=== PATIENT | male | born 1990 | race Hispanic/Latino ===

== ENCOUNTER 2018-04-22 21:36 | Emergency (ER) | payer OTHER | END 2018-04-22 23:32 | disposition home or self-care (01) | LOC: M ED 21:36 | DX: B86 Scabies (principal); F17.200 Nicotine dependence, unspecified, uncomplicated | CPT/HCPCS: 99283 ==

== ENCOUNTER 2018-05-04 10:02 | Emergency (ER) | payer OTHER ==
[2018-05-04] MEDS: KETOROLAC 60 MG/2 ML VIAL (J1885) IM (10:27)
[2018-05-04] MEDS: METHOCARBAMOL 500 MG TAB PO (10:30)
== END 2018-05-04 10:56 | disposition home or self-care (01) ==
LOC: M ED 10:02
DX: S29.012A Strain of muscle and tendon of back wall of thorax, initial encounter (principal); X50.9XXA Other and unspecified overexertion or strenuous movements or postures, initial encounter; Y92.89 Other specified places as the place of occurrence of the external cause; F17.210 Nicotine dependence, cigarettes, uncomplicated
CPT/HCPCS: J1885

== ENCOUNTER 2018-11-06 17:42 | Emergency (ER) | payer SELFPAY ==
[2018-11-06] MEDS: NS 1,000 ML IV (18:45)
[2018-11-06] MEDS: PANTOPRAZOLE 40MG INJ (PROTONIX) (C9113) IV (18:45)
[2018-11-06] MEDS: ONDANSETRON 4MG/2ML VIAL (J2405) IV (18:46)
[2018-11-06 18:56] LABS: BASO % 0.4 % (0.0-1.0); EOS # 0.2 10^3/uL (0.0-0.50); EOS % 3.3 % (0.0-3.0); HEMATOCRIT 47.1 % (42.0-52.0); HEMOGLOBIN 15.5 g/dl (13.5-17.5); IMMATURE GRANULOCYTE % 0.2 % (0-3.0); LYMPH # 1.1 10^3/uL (1.5-6.5); LYMPH % 22.5 % (24.0-44.0); MEAN CORPUSCULAR HGB CONC 32.9 g/dl (32.0-36.5); MONO # 0.6 10^3/uL (0.0-0.8); MONO % 13.1 % (0.0-5.0); NEUTROPHILS % 60.5 % (36.0-66.0); PLATELET COUNT, AUTOMATED 252 10^3/uL (150-450); RED BLOOD COUNT 5.54 10^6/uL (4.30-6.10); RED CELL DISTRIBUTION WIDTH 13.1 % (11.5-14.5); WHITE BLOOD COUNT 4.9 10^3/uL (4.0-10.0)
[2018-11-06 19:09] LABS: KETONE, URINE AUTO RFX NEGATIVE (NEGATIVE); LEUKOCYTE ESTERASE UR AUTO RFX NEGATIVE (NEGATIVE); MUCUS, URINE RFX SMALL (NEGATIVE); NITRITE, URINE AUTO RFX NEGATIVE (NEGATIVE); RBC, URINE AUTO RFX 1 /HPF (0-3); SQUAM EPITHELIAL CELL UR AURFX 0 /HPF (0-6); WBC, URINE AUTO RFX 1 /HPF (0-3)
[2018-11-06 19:10] LABS: ALBUMIN 3.9 GM/DL (3.2-5.2); ALBUMIN/GLOBULIN RATIO 1.26 (1.00-1.93); ALKALINE PHOSPHATASE 71 U/L (45-117); ALT/SGPT 36 U/L (12-78); ANION GAP 5 MEQ/L (8-16); AST/SGOT 19 U/L (7-37); BILIRUBIN,DIRECT 0.1 MG/DL (0.0-0.2); BILIRUBIN,TOTAL 0.4 MG/DL (0.2-1.0); BLOOD UREA NITROGEN 17 MG/DL (7-18); CALCIUM LEVEL 8.9 MG/DL (8.5-10.1); CARBON DIOXIDE LEVEL 32 MEQ/L (21-32); CHLORIDE LEVEL 103 MEQ/L (98-107); CREATININE FOR GFR 0.95 MG/DL (0.70-1.30); GLOMERULAR FILTRATION RATE > 60.0 (>60); GLUCOSE, FASTING 100 MG/DL (70-100); LIPASE 108 U/L (73-393); POTASSIUM SERUM 4.1 MEQ/L (3.5-5.1); SODIUM LEVEL 140 MEQ/L (136-145)
[2018-11-06 21:14] LABS: CHLAMYDIA DNA AMPLIFICATION NEGATIVE (NEGATIVE); GC DNA AMPLIFICATION NEGATIVE (NEGATIVE)
== END 2018-11-06 20:19 | disposition home or self-care (01) ==
LOC: M ED 17:42
DX: K29.70 Gastritis, unspecified, without bleeding (principal); R11.2 Nausea with vomiting, unspecified; Z72.0 Tobacco use
CPT/HCPCS: C9113

== ENCOUNTER 2018-11-08 16:32 | Emergency (ER) | payer SELFPAY ==
[2018-11-08] MEDS: ONDANSETRON 4MG/2ML VIAL (J2405) IV (17:37)
[2018-11-08] MEDS: NS 1,000 ML IV (17:37)
[2018-11-08] MEDS: GI COCKTAIL 50ML BTL(HYOSCYAMINE/MAALOX/LIDOCAINE VISCOUS)(1:3:1) PO (17:37)
[2018-11-08] MEDS: ACETAMINOPHEN 325 MG TAB PO (17:38)
[2018-11-08 17:49] LABS: BASO % 0.6 % (0.0-1.0); EOS # 0.1 10^3/uL (0.0-0.50); EOS % 1.9 % (0.0-3.0); HEMATOCRIT 44.3 % (42.0-52.0); HEMOGLOBIN 14.7 g/dl (13.5-17.5); IMMATURE GRANULOCYTE % 0.2 % (0-3.0); LYMPH # 1.5 10^3/uL (1.5-6.5); LYMPH % 30.7 % (24.0-44.0); MEAN CORPUSCULAR HEMOGLOBIN 28.3 pg (27.0-33.0); MEAN CORPUSCULAR HGB CONC 33.2 g/dl (32.0-36.5); MEAN CORPUSCULAR VOLUME 85.4 fl (80.0-96.0); MONO # 1.1 10^3/uL (0.0-0.8); MONO % 22.5 % (0.0-5.0); NEUTROPHILS # 2.1 10^3/uL (1.8-7.7); NEUTROPHILS % 44.1 % (36.0-66.0); PLATELET COUNT, AUTOMATED 230 10^3/uL (150-450); RED BLOOD COUNT 5.19 10^6/uL (4.30-6.10); RED CELL DISTRIBUTION WIDTH 12.9 % (11.5-14.5); WHITE BLOOD COUNT 4.9 10^3/uL (4.0-10.0)
[2018-11-08 18:10] LABS: ALBUMIN 3.7 GM/DL (3.2-5.2); ALBUMIN/GLOBULIN RATIO 1.19 (1.00-1.93); ALKALINE PHOSPHATASE 62 U/L (45-117); ALT/SGPT 35 U/L (12-78); ANION GAP 6 MEQ/L (8-16); AST/SGOT 19 U/L (7-37); BILIRUBIN,DIRECT 0.1 MG/DL (0.0-0.2); BILIRUBIN,TOTAL 0.6 MG/DL (0.2-1.0); BLOOD UREA NITROGEN 12 MG/DL (7-18); CALCIUM LEVEL 8.4 MG/DL (8.5-10.1); CARBON DIOXIDE LEVEL 28 MEQ/L (21-32); CHLORIDE LEVEL 107 MEQ/L (98-107); CREATININE FOR GFR 0.91 MG/DL (0.70-1.30); GLOMERULAR FILTRATION RATE > 60.0 (>60); GLUCOSE, FASTING 80 MG/DL (70-100); LIPASE 226 U/L (73-393); SODIUM LEVEL 141 MEQ/L (136-145); TOTAL PROTEIN 6.8 GM/DL (6.4-8.2)
[2018-11-08 18:18] LABS: INFLUENZA A AMPLIFICATION NEGATIVE (NEGATIVE); INFLUENZA B AMPLIFICATION NEGATIVE (NEGATIVE)
[2018-11-08] MEDS ORDERED: ISOVUE-370 76% 100ML VIAL (Q9967) As Ordered (18:22)
== END 2018-11-08 21:02 | disposition home or self-care (01) ==
LOC: M ED 16:32
DX: K52.9 Noninfective gastroenteritis and colitis, unspecified (principal); K21.9 Gastro-esophageal reflux disease without esophagitis; R11.2 Nausea with vomiting, unspecified; R19.7 Diarrhea, unspecified; Z72.0 Tobacco use
CPT/HCPCS: J2405

== ENCOUNTER 2019-04-08 20:51 | Emergency (ER) | payer SELFPAY ==
[~2019-04-08] VITALS: Ht 175.3 cm; Wt 84.1 kg
[~2019-04-08 20:51] MED LIST: BENA25CA4 PO; ELIM5CRE2 TOP; IBUP80TA PO; RANI15TA PO; ROBA500T PO; ZOFR4TAB14 PO
[2019-04-08] MEDS ORDERED: NS 1,000 ML IV ONE (21:30)
[2019-04-08] MEDS ORDERED: ONDANSETRON 4MG/2ML VIAL (J2405) IV ONE (21:30)
[2019-04-08] MEDS ORDERED: PANTOPRAZOLE 40MG INJ (PROTONIX) (C9113) IV ONE (21:30)
[2019-04-08 21:31] LABS: BASO # 0.1 10^3/uL (0.0-0.2); BASO % 0.8 % (0.0-1.0); EOS # 0.3 10^3/uL (0.0-0.50); EOS % 4.3 % (0.0-3.0); HEMATOCRIT 42.6 % (42.0-52.0); HEMOGLOBIN 14.5 g/dl (13.5-17.5); LYMPH # 2.5 10^3/uL (1.5-6.5); LYMPH % 31.1 % (24.0-44.0); MEAN CORPUSCULAR HEMOGLOBIN 28.2 pg (27.0-33.0); MEAN CORPUSCULAR VOLUME 82.7 fl (80.0-96.0); MONO # 0.8 10^3/uL (0.0-0.8); MONO % 9.6 % (0.0-5.0); NEUTROPHILS # 4.3 10^3/uL (1.8-7.7); NEUTROPHILS % 53.8 % (36.0-66.0); PLATELET COUNT, AUTOMATED 312 10^3/uL (150-450); RED BLOOD COUNT 5.15 10^6/uL (4.30-6.10)
[2019-04-08 22:01] LABS: ALBUMIN 4.1 GM/DL (3.2-5.2); ALT/SGPT 45 U/L (12-78); BILIRUBIN,DIRECT 0.1 MG/DL (0.0-0.2); BILIRUBIN,TOTAL 0.5 MG/DL (0.2-1.0); BLOOD UREA NITROGEN 19 MG/DL (7-18); CALCIUM LEVEL 9.3 MG/DL (8.5-10.1); CARBON DIOXIDE LEVEL 25 MEQ/L (21-32); CHLORIDE LEVEL 108 MEQ/L (98-107); GLOMERULAR FILTRATION RATE > 60.0 (>60); GLUCOSE, FASTING 114 MG/DL (70-100); LIPASE 101 U/L (73-393); POTASSIUM SERUM 4.2 MEQ/L (3.5-5.1); SODIUM LEVEL 139 MEQ/L (136-145)
[2019-04-08] MEDS ORDERED: ZANT300T9 PO (22:24)
[2019-04-08] MEDS ORDERED: ZOFR4TAB16 PO (22:24)
[2019-04-08 22:29] VITALS: BP 119/68
--- NOTE | 2019-04-09 01:03 | REP ---
Clinical: Acute abdominal pain. Technique: Upright view of the chest with supine and upright views of the abdomen and pelvis. Findings: Frontal upright view of the chest demonstrates no acute cardiopulmonary process or free air below the diaphragm to suspect pneumoperitoneum. Supine and upright views of the abdomen and pelvis demonstrate nonspecific bowel gas pattern without obstruction or perforation. No organomegaly. No abnormal calcifications. Skeletal structures normal for age. Impression: Nonspecific bowel gas pattern. Electronically Signed by Keon Loco MD 04/09/2019 12:55 A
== END 2019-04-08 22:34 | disposition home or self-care (01) ==
LOC: M ED 20:51
DX: R10.9 Unspecified abdominal pain (principal); R11.0 Nausea
CPT/HCPCS: 74021; 80048; 80076; 81001; 83690; 85025; 96374; 96375; 99284; C9113; J2405

== ENCOUNTER 2019-04-11 14:02 | Emergency (ER) | payer SELFPAY ==
[~2019-04-11] VITALS: Ht 175.3 cm; Wt 85.1 kg
[~2019-04-11 14:02] MED LIST changes: +ZANT300T9 PO; +ZOFR4TAB16 PO
[2019-04-11] MEDS ORDERED: GI COCKTAIL 50ML BTL(HYOSCYAMINE/MAALOX/LIDOCAINE VISCOUS)(1:3:1) PO ONE (14:30)
[2019-04-11] MEDS ORDERED: NS 1,000 ML IV ONE (14:30)
[2019-04-11] MEDS ORDERED: ONDANSETRON 4MG/2ML VIAL (J2405) IV ONE (14:30)
[2019-04-11 14:42] LABS: BASO # 0.1 10^3/uL (0.0-0.2); EOS # 0.2 10^3/uL (0.0-0.50); EOS % 3.6 % (0.0-3.0); HEMATOCRIT 45.3 % (42.0-52.0); HEMOGLOBIN 15.6 g/dl (13.5-17.5); LYMPH # 1.9 10^3/uL (1.5-6.5); LYMPH % 32.7 % (24.0-44.0); MEAN CORPUSCULAR HEMOGLOBIN 28.4 pg (27.0-33.0); MEAN CORPUSCULAR HGB CONC 34.4 g/dl (32.0-36.5); MEAN CORPUSCULAR VOLUME 82.4 fl (80.0-96.0); MONO # 0.6 10^3/uL (0.0-0.8); MONO % 9.4 % (0.0-5.0); NEUTROPHILS # 3.1 10^3/uL (1.8-7.7); NEUTROPHILS % 53.1 % (36.0-66.0); PLATELET COUNT, AUTOMATED 318 10^3/uL (150-450); WHITE BLOOD COUNT 5.9 10^3/uL (4.0-10.0)
[2019-04-11 15:05] LABS: ALBUMIN 4.1 GM/DL (3.2-5.2); ALT/SGPT 55 U/L (12-78); BILIRUBIN,DIRECT 0.2 MG/DL (0.0-0.2); BILIRUBIN,TOTAL 0.7 MG/DL (0.2-1.0); BLOOD UREA NITROGEN 16 MG/DL (7-18); CARBON DIOXIDE LEVEL 24 MEQ/L (21-32); CHLORIDE LEVEL 107 MEQ/L (98-107); CREATININE FOR GFR 0.83 MG/DL (0.70-1.30); GLOMERULAR FILTRATION RATE > 60.0 (>60); GLUCOSE, FASTING 102 MG/DL (70-100); LIPASE 126 U/L (73-393); POTASSIUM SERUM 4.3 MEQ/L (3.5-5.1); SODIUM LEVEL 138 MEQ/L (136-145); TOTAL PROTEIN 7.4 GM/DL (6.4-8.2)
[2019-04-11] MEDS: GASTROGRAFIN SOLUTION 30ML PO SCH ×2 (15:29→15:30)
[2019-04-11] MEDS ORDERED: ISOVUE-370 76% 100ML VIAL (Q9967) As Ordered ONE (16:25)
[2019-04-11] MEDS ORDERED: ASAC800T3 PO (16:47)
[2019-04-11 17:00] VITALS: BP 128/80
--- NOTE | 2019-04-12 08:38 | REP ---
HISTORY: Abdominal pain. COMPARISON: 11/08/2018 The lung bases are clear. The liver, gallbladder, spleen, pancreas, adrenal glands and kidneys are within normal limits. The abdominal aorta and periaortic regions are within normal limits. The bowel loops and the mesenteries are within normal limits. There is no free fluid or free air. There is no mass or adenopathy. CT PELVIS: The bowel loops and their mesenteries are within normal limits. There is no mass or adenopathy. There is no free fluid or free air. The osseous structures are stable and intact. IMPRESSION: There is no evidence of acute intraabdominal or intrapelvic disease. Electronically Signed by Lyle Stovall DO 04/12/2019 09:12 A
== END 2019-04-11 17:16 | disposition home or self-care (01) ==
LOC: M ED 14:02
DX: R10.9 Unspecified abdominal pain (principal); R11.2 Nausea with vomiting, unspecified; Z79.899 Other long term (current) drug therapy
CPT/HCPCS: 74177; 80048; 80076; 81001; 83690; 85025; 96361; 96374; 99284; J2405; Q9963; Q9967

== ENCOUNTER 2019-06-20 13:23 | Emergency (ER) | payer SELFPAY ==
[~2019-06-20] VITALS: Ht 175.3 cm; Wt 86.4 kg
[2019-06-20 13:23] VITALS: BP 129/83
[~2019-06-20 13:23] MED LIST changes: +ASAC800T3 PO
[2019-06-20] MEDS ORDERED: CARA1TAB6 PO (18:14)
[2019-06-20] MEDS ORDERED: PROT1TAB2 PO (18:14)
[2019-06-20] MEDS ORDERED: ONDA4TAB6 PO (18:19)
== END 2019-06-20 13:54 | disposition left against medical advice (07) ==
LOC: M ED 13:23
DX: Z53.29 Procedure and treatment not carried out because of patient's decision for other reasons (principal)

== ENCOUNTER 2019-06-20 15:33 | Emergency (ER) | payer MEDICAID, SELFPAY ==
[~2019-06-20] VITALS: Ht 175.3 cm; Wt 86.4 kg
[2019-06-20] MEDS ORDERED: SUCRALFATE 1 GM TAB PO ONE (16:00)
[2019-06-20] MEDS ORDERED: PANTOPRAZOLE 40MG TAB (PROTONIX) PO ONE (16:00)
[2019-06-20 16:04] LABS: BASO # 0.1 10^3/uL (0.0-0.2); BASO % 0.8 % (0.0-1.0); EOS # 0.3 10^3/uL (0.0-0.50); EOS % 4.1 % (0.0-3.0); HEMATOCRIT 43.6 % (42.0-52.0); HEMOGLOBIN 14.6 g/dl (13.5-17.5); LYMPH % 30.8 % (24.0-44.0); MEAN CORPUSCULAR HEMOGLOBIN 28.3 pg (27.0-33.0); MEAN CORPUSCULAR HGB CONC 33.5 g/dl (32.0-36.5); MEAN CORPUSCULAR VOLUME 84.5 fl (80.0-96.0); MONO # 0.6 10^3/uL (0.0-0.8); MONO % 9.3 % (0.0-5.0); NEUTROPHILS # 3.5 10^3/uL (1.8-7.7); NEUTROPHILS % 54.8 % (36.0-66.0); PLATELET COUNT, AUTOMATED 295 10^3/uL (150-450); RED BLOOD COUNT 5.16 10^6/uL (4.30-6.10); WHITE BLOOD COUNT 6.3 10^3/uL (4.0-10.0)
[2019-06-20 16:23] LABS: INR 0.94; PROTHROMBIN TIME 12.3 SECONDS (11.8-14.0)
[2019-06-20 16:24] LABS: PARTIAL THROMBOPLASTIN TIME 29.8 SECONDS (25.0-38.4)
[2019-06-20 16:27] LABS: ALBUMIN 3.7 GM/DL (3.2-5.2); ALT/SGPT 68 U/L (12-78); BILIRUBIN,DIRECT 0.2 MG/DL (0.0-0.2); BILIRUBIN,TOTAL 0.6 MG/DL (0.2-1.0); BLOOD UREA NITROGEN 20 MG/DL (7-18); CALCIUM LEVEL 8.4 MG/DL (8.5-10.1); CARBON DIOXIDE LEVEL 26 MEQ/L (21-32); CHLORIDE LEVEL 110 MEQ/L (98-107); CREATININE FOR GFR 0.93 MG/DL (0.70-1.30); GLOMERULAR FILTRATION RATE > 60.0 (>60); GLUCOSE, FASTING 87 MG/DL (70-100); POTASSIUM SERUM 4.3 MEQ/L (3.5-5.1); SODIUM LEVEL 141 MEQ/L (136-145); TOTAL PROTEIN 6.8 GM/DL (6.4-8.2)
[2019-06-20] MEDS ORDERED: CARA1TAB6 PO (18:14)
[2019-06-20] MEDS ORDERED: PROT1TAB2 PO (18:14)
[2019-06-20 18:15] VITALS: BP 123/71
[2019-06-20] MEDS ORDERED: ONDA4TAB6 PO (18:19)
== END 2019-06-20 18:29 | disposition home or self-care (01) ==
LOC: M ED 15:33
DX: K22.6 Gastro-esophageal laceration-hemorrhage syndrome (principal)

== ENCOUNTER 2019-07-06 23:02 | Inpatient (IN) | payer SELFPAY ==
[~2019-07-06] VITALS: Ht 175.3 cm; Wt 83.6 kg
[~2019-07-06 23:02] MED LIST changes: +CARA1TAB6 PO; +ONDA4TAB6 PO; +PROT1TAB2 PO
[2019-07-06 23:39] LABS: HEMATOCRIT 42.8 % (42.0-52.0); HEMOGLOBIN 14.4 g/dl (13.5-17.5); MEAN CORPUSCULAR HEMOGLOBIN 28.1 pg (27.0-33.0); MEAN CORPUSCULAR HGB CONC 33.6 g/dl (32.0-36.5); MEAN CORPUSCULAR VOLUME 83.4 fl (80.0-96.0); PLATELET COUNT, AUTOMATED 328 10^3/uL (150-450); RED BLOOD COUNT 5.13 10^6/uL (4.30-6.10); WHITE BLOOD COUNT 7.6 10^3/uL (4.0-10.0)
[2019-07-07 00:02] LABS: AMPHETAMINES LEVEL URINE NEGATIVE (NEGATIVE); BARBITURATES URINE NEGATIVE (NEGATIVE); BENZODIAZEPINES URINE NEGATIVE (NEGATIVE); CANNABINOIDS URINE POSITIVE (NEGATIVE); COCAINE METABOLITE URINE NEGATIVE (NEGATIVE); METHADONE URINE NEGATIVE (NEGATIVE); OPIATES URINE NEGATIVE (NEGATIVE); PHENCYCLIDINE URINE NEGATIVE (NEGATIVE)
[2019-07-07] MEDS ORDERED: PROT1TAB2 PO (00:28)
[2019-07-07] MEDS ORDERED: ONDA4TAB6 PO (00:28)
[2019-07-07 00:36] LABS: ACETAMINOPHEN LEVEL < 2.0 UG/ML (10.0-30.0); ALBUMIN 3.8 GM/DL (3.2-5.2); ALT/SGPT 51 U/L (12-78); BILIRUBIN,DIRECT < 0.1 MG/DL (0.0-0.2); BILIRUBIN,TOTAL 0.3 MG/DL (0.2-1.0); BLOOD UREA NITROGEN 12 MG/DL (7-18); CALCIUM LEVEL 9.2 MG/DL (8.5-10.1); CARBON DIOXIDE LEVEL 25 MEQ/L (21-32); CHLORIDE LEVEL 106 MEQ/L (98-107); CREATININE FOR GFR 1.05 MG/DL (0.70-1.30); ETHYL ALCOHOL (ETHANOL) < 0.003 % (0.000-0.010); GLOMERULAR FILTRATION RATE > 60.0 (>60); GLUCOSE, FASTING 103 MG/DL (70-100); POTASSIUM SERUM 3.9 MEQ/L (3.5-5.1); SALICYLATE LEVEL < 1.7 MG/DL (5.0-30.0); SODIUM LEVEL 139 MEQ/L (136-145); THYROID STIMULATING HORMONE 0.785 uIU/ML (0.358-3.740)
[2019-07-07] MEDS ORDERED: MOM 30ML SUSPENSION UDC PO PRN (01:00)
[2019-07-07] MEDS ORDERED: MAALOX 30 ML SUSP *UDC PO PRN (01:00)
[2019-07-07] MEDS ORDERED: ACETAMINOPHEN TAB 650MG DOSE (2X325MG) PO PRN (01:00)
[2019-07-07 02:37] VITALS: BP 131/88
--- NOTE | 2019-07-07 09:40 | HPEPDOC ---
General Date of Admission Jul 07, 2019 at 00:53 Date of Service: Jul 07, 2019 Attending Physician: GERA SANTOS MD Chief Complaint The patient is a 29-year-old male admitted with a reason for visit of Unspecified Depressive Disorder. History of Present Illness Andrea Thompson patient is a 29-year-old male, who self presented on account of concern for attempted suicide, self-harm. Patient reported suicidal ideation. He was admitted to inpatient psychiatric unit for further evaluation and management. On assessment, he denies any chest pain, shortness of breath, weakness, abdomi nal pain, chills, fever. Home Medications Scheduled Ondansetron (Ondansetron Odt) 4 Mg Tab.rapdis, 4 MG PO QHS, (Reported) Pantoprazole Sodium (Protonix) 40 Mg Tablet.dr, 40 MG PO DAILY, (Reported) Allergies Coded Allergies: No Known Allergies (Unverified , 07/06/19) Past Medical History Medical History Polysubstance abuse Nicotine dependence Surgical History Denies surgical history Family History Denies pertinent family history Social History Vapes, denies alcohol use, ongoing polysubstance abuse with THC A-FIB/CHADSVASC A-FIB History Current/History of A-Fib/PAF?: No Current PO Anticoag Therapy: No Review of Systems Other systems A limited review of systems is completed due to patient's lack of cooperation Physical Examination Other physical findings GENERAL: NAD SKIN : Warm, dry, healing cut to right calf HEENT: Atraumatic, normocephalic, PERRL, moist mucous membrane CARDIOVASCULAR: Regular rate and rhythm, S1S2, no JVD, no edema, distal pulses + palpable RESP: CTAB, no accessory muscle use noted ABDOMEN: BS+ non distended non tender MS: no joint deformities NEURO: Alert and oriented x 3, CN2-12 grossly intact PSYCH:, Flat affect. Vital Signs Vital Signs Date Time Temp Pulse Resp B/P (MAP) Pulse Ox O2 Delivery O2 Flow Rate FiO2 07/07/19 02:50 07/07/19 02:37 97.3 75 16 99 07/07/19 01:38 Room Air Laboratory Data Labs 24H Laboratory Tests 2 07/06/19 23:22: Urine Amphetamines Screen NEGATIVE, Urine Benzodiazepines Screen NEGATIVE, Urine Opiates Screen NEGATIVE, Urine Methadone Screen NEGATIVE, Urine Barbiturates Screen NEGATIVE, Urine Phencyclidine Screen NEGATIVE, Urine Cocaine Metabolite Screen NEGATIVE, Urine Cannabinoids Screen POSITIVEH 07/06/19 23:26: Nucleated Red Blood Cells % (auto) 0.0, Anion Gap 8, Glomerular Filtration Rate > 60.0, Calcium Level 9.2, Aspartate Amino Transf (AST/SGOT) 16, Alanine Aminotransferase (ALT/SGPT) 51, Alkaline Phosphatase 74, Total Bilirubin 0.3, Direct Bilirubin < 0.1, Total Protein 7.0, Albumin 3.8, Albumin/Globulin Ratio 1.19, Thyroid Stimulating Hormone (TSH) 0.785, Salicylates Level < 1.7L, Acetaminophen Level < 2.0L, Ethyl Alcohol Level < 0.003 CBC/BMP Laboratory Tests 07/06/19 23:26 Red Blood Count 5.13, Mean Corpuscular Volume 83.4, Mean Corpuscular Hemoglobin 28.1, Mean Corpuscular Hemoglobin Concent 33.6, Red Cell Distribution Width 13.2 Assessment/Plan Suicidal ideation Nicotine dependence Polysubstance abuse with THC Plan Based on above evaluation patient currently has no underlying medical comorbidities requiring further evaluation and follow-up. Management of acute psychiatric problems by primary team Reconsult medical team as needed Plan / VTE VTE Prophylaxis Ordered?: No VTE Exclusion Mechanical Proph: Low Risk for VTE SOL NUNEZ Jul 07, 2019 09:40
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
[2019-07-07] MEDS ORDERED: ONDANSETRON 4 MG TAB (S0181) PO PRN (13:15)
[2019-07-07] MEDS ORDERED: PANTOPRAZOLE 40MG TAB (PROTONIX) PO ONE (14:00)
[2019-07-07] MEDS ORDERED: SERTRALINE HCL 25 MG TABLET PO ONE (15:00)
[2019-07-07 17:50] VITALS: BP 117/71
[2019-07-07 18:00] VITALS: BP 117/71
[2019-07-07] MEDS: NICOTINE 7 MG/24 HR TRANSDERMAL TD SCH (18:17)
[2019-07-07] MEDS: traZODone 50 MG TAB PO PRN (21:37)
[2019-07-08 06:48] VITALS: BP 132/68
[2019-07-08] MEDS ORDERED: SERTRALINE HCL 25 MG TABLET PO SCH (09:00)
[2019-07-08] MEDS: PANTOPRAZOLE 40MG TAB (PROTONIX) PO SCH (09:14)
[2019-07-08] MEDS: NICOTINE 7 MG/24 HR TRANSDERMAL TD SCH (09:15)
--- NOTE | 2019-07-08 11:54 | MHIPNPDOC ---
[facility] Progress Note Progress Note Date of Service: 07/08/2019 History of Present Illness The patient, a 29-year-old man with a report history of anxiety, depression who has not been treated in mental health prior, presents to [facility] suicidal, depressed with multiple plans to kill himself. He has a notable history of suicide attempts of which he has not sought medical care for and recently has had multiple psychosocial stressors including increasing fights with his spouse and difficulties at work as well as financial difficulties that have made it difficult for him to cope with his depression with increasing mood, loss of interest, fatigue, insomnia and concentration focus problems. He reports that he has had suicide attempts in the past ever since he was "11", but has never spoken about them and does not seek care for them. Interval History Patient is met with today. He describes he is doing much better. Nursing notes no behavioral problems. He has been attending groups and doing well, much more affable, found walking in the hallway talking to various peers. He reports his depression has improved with less hopelessness, fatigue, and difficulties coping with stressors. Patient reports some anxiety about financial situation, but otherwise reports that he feels ready to go home tomorrow as he's no longer suicidal. Notes appear to support that the patient has not been endorsing any suicidal ideation since his presentation and likely does not meet involuntary criteria for further admission. Review Of Systems Denies any side effects from his sertraline such as GI upset, headache, tremors, or other concerning side effects. Reports stuffy nose of which he received Cepacol and nasal spray. Reports improved GI upset after taking sertraline. Psychotherapy None on this visit. Vital Signs Reviewed. Mental Status Examination General: Well dressed with good hygiene Speech: Spontaneous and fluid Thought processes: Linear and logical MSK: Smooth and coordinated gait, no signs of tremors or involuntary orofacial movements Thought content: Future orientated Abstract reasoning, and computation: Intact Description of associations: Intact Description of abnormal or psychotic thoughts: Denies any suicidal or homicidal ideation. Denies any auditory or visual hallucinations. Does not appear to be responding to internal stimuli. Does not appear to be endorsing any bizarre or paranoid ideation. Judgment: fair Insight: fair Orientation: Alert and orientated 3 Cognition: Grossly normal Recent and remote memory: Intact Attention span and concentration: Intact Fund of knowledge: Adequate Mood: "okay" Affect: Euthymic with a full range Diagnoses Unspecified depressive disorder. Rule out MDD versus adjustment. Unspecified stressor disorder. Tobacco use disorder, severe. Cannabis use disorder, mild. Somatization disorder. Assessment and Plan Patient is met with today and is improving well on 25 of sertraline. Will be increased to 50 for tomorrow and will be likely discharged as he is doing well and no longer meets involuntary criteria in my clinical judgment, and is electing as to further voluntary admission past tomorrow. Disposition Likely discharge tomorrow. Time Spent 20 minutes [id number]. Saturday Vital Signs Vital Signs Date Time Temp Pulse Resp B/P (MAP) Pulse Ox O2 Delivery O2 Flow Rate FiO2 07/08/19 06:48 99.1 74 19 132/68 (89) 07/07/19 02:37 99 07/07/19 01:38 Room Air Current Medications Current Medications Medications (Trade) Dose Ordered Sig/Norberto Route PRN Reason Start Time Stop Time Status Last Admin Dose Admin Acetaminophen (Tylenol Tab) 650 mg Q6HP PRN PO HEADACHE or DISCOMFORT 07/07/19 01:00 07/08/19 09:22 Al Hydrox/Mg Hydrox/Simethicone (Mylanta) 30 ml Q4HP PRN PO HEARTBURN/INDIGESTION 07/07/19 01:00 Home Med (Med Rec Complete!) ASDIRECTED XX 07/07/19 00:30 07/07/19 00:30 DC Magnesium Hydroxide (Milk Of Magnesia) 30 ml DAILYPRN PRN PO CONSTIPATION 07/07/19 01:00 Nicotine (Nicoderm Cq 7 Mg) 1 patch DAILY TD 07/07/19 09:00 07/08/19 09:15 Ondansetron HCl (Zofran) 4 mg Q4HP PRN PO NAUSEA OR VOMITING 07/07/19 13:15 07/07/19 21:37 Pantoprazole Sodium (Protonix) 40 mg DAILY PO 07/08/19 09:00 07/08/19 09:14 Sertraline HCl (Zoloft) 25 mg DAILY PO 07/08/19 09:00 07/08/19 09:14 Trazodone HCl (Desyrel) 50 mg QHSP PRN PO INSOMNIA 07/07/19 01:00 8/13/19 21:37 Allergies Coded Allergies: No Known Allergies (Unverified , 07/06/19) TESSY ALVARADO DO Jul 08, 2019 11:54
[2019-07-08] MEDS: CEPACOL LOZENGE PO PRN ×4 (12:39→21:11)
[2019-07-08] MEDS: FLUTICASONE PROP 0.05% NASAL SPRAY 16 GM (FLONASE) NARES SCH ×2 (13:32→21:09)
[2019-07-08 18:00] VITALS: BP 129/67
[2019-07-08] MEDS: traZODone 50 MG TAB PO PRN (22:58)
[2019-07-08] MEDS ORDERED: traZODone 50 MG TAB PO ONE (23:45)
[2019-07-09 06:42] VITALS: BP 113/68
[2019-07-09] MEDS ORDERED: NICOTINE 21MG/24HR 1 EA TRANSDERMAL TD SCH (09:00)
[2019-07-09] MEDS ORDERED: SERTRALINE HCL 50 MG TAB PO SCH (09:00)
[2019-07-09] MEDS: FLUTICASONE PROP 0.05% NASAL SPRAY 16 GM (FLONASE) NARES SCH (09:18)
[2019-07-09] MEDS: PANTOPRAZOLE 40MG TAB (PROTONIX) PO SCH (09:18)
[2019-07-09] MEDS ORDERED: SERT-155 PO (11:17)
[2019-07-09] MEDS ORDERED: NICO21PAT TD (11:17)
--- NOTE | 2019-07-09 20:51 | MHDSPDOC ---
[facility] Discharge Summary Discharge Summary DATE OF ADMISSION: Jul 07, 2019 at 00:53 DATE OF DISCHARGE: Jul 09, 2019 at 13:00 Date of Service: 07/09/2019 Diagnoses Unspecified depressive disorder. Rule out MDD versus adjustment. Unspecified trauma/stress-related disorder. History of Present Illness The patient, a 29-year-old man with a report history of anxiety, depression who has not been treated in mental health prior, presents to [facility] suicidal, depressed with multiple plans to kill himself. He has a notable history of suicide attempts of which he has not sought medical care for and recently has had multiple psychosocial stressors including increasing fights with his spouse and difficulties at work as well as financial difficulties that have made it difficult for him to cope with his depression with increasing mood, loss of interest, fatigue, insomnia and concentration focus problems. He reports that he has had suicide attempts in the past ever since he was "11", but has never spoken about them and does not seek care for them. Consultants Involved Hospitalist/PCP screening Treatment and Progress On The Unit The patient was admitted to the unit and was notably severely depressed. He was started on low-dose sertraline 25 mg tapered up to 50 mg with good effect, improvement on the unit with milieu therapy, improved the patient's situation where he was able to focus on his needs and became much more able to socialize. He notably had reduction in his depressive symptoms and requested discharge. He had denied any suicidal ideation since his arrived on the unit and thus at that time did not meet criteria for further involuntary treatment as he was not demonstrate any concerning signs or symptoms and had declined a further voluntary admission, thus he was discharged in good caprice home. He had made good progress with a relatively small amount of treatment suggesting that he could either do well as an outpatient and that his depression could be due to adj ustment, rather than full MDD. Discharge Assessment The patient, a 29-year-old man with an unspecified depressive disorder presents with significant depressive symptoms. However, they appeared to be in multiple stressors. It's unclear whether he is suffering from a depressive disorder or a trauma-based disorder. However, he makes good progress with a relatively small amount of treatment on the unit. Mental Status Examination General: Well dressed with good hygiene Speech: Spontaneous and fluid Thought processes: Linear and logical MSK: Smooth and coordinated gait, no signs of tremors or involuntary orofacial movements Thought content: Future orientated Abstract reasoning, and computation: Intact Description of associations: Intact Description of abnormal or psychotic thoughts: Denies any suicidal or homicidal ideation. Denies any auditory or visual hallucinations. Does not appear to be responding to internal stimuli. Does not appear to be endorsing any bizarre or paranoid ideation. Judgment: fair Insight: fair Orientation: Alert and orientated 3 Cognition: Grossly normal Recent and remote memory: Intact Attention span and concentration: Intact Fund of knowledge: Adequate Mood: "okay" Affect: Euthymic with a full range Follow Up The social work team worked during the predischarge meeting in order to evaluate for further issues of lethality address them fully before discharge. They worked on safety planning with the patient's family members in order to ensure that the patient will have a safe and effective discharge. Time Spent The amount of time spent in the coordination of care for this patient was approximately 30 minutes. Vital Signs/I&Os Vital Signs Date Time Temp Pulse Resp B/P (MAP) Pulse Ox O2 Delivery O2 Flow Rate FiO2 07/09/19 06:42 97.8 65 12 113/68 (83) 07/07/19 02:37 99 07/07/19 01:38 Room Air Medications Scheduled Nicotine (Nicotine Patch) 21 Mg Patch.td24, 1 PATCH TD DAILY for smoking for 30 Days, #30 Ondansetron (Ondansetron Odt) 4 Mg Tab.rapdis, 4 MG PO QHS, (Reported) Pantoprazole Sodium (Protonix) 40 Mg Tablet.dr, 40 MG PO DAILY, (Reported) Sertraline HCl (Sertraline HCl) 50 Mg Tablet, 50 MG PO DAILY for mood for 7 Days, #7 Allergies Coded Allergies: No Known Allergies (Unverified , 07/06/19) TESSY ALVARADO DO Jul 09, 2019 20:51
== END 2019-07-09 13:00 | disposition home or self-care (01) | DRG 754 ==
LOC: M ED 23:02 → M ED INP 07-07 00:53 → M PSY 07-07 02:26
PROVIDERS: ADMIT Psychiatry & Neurology Addiction Medicine; ATTEND Psychiatry & Neurology Addiction Medicine
DX: F32.9 Major depressive disorder, single episode, unspecified (principal); R45.851 Suicidal ideations; F41.9 Anxiety disorder, unspecified; F43.10 Post-traumatic stress disorder, unspecified; Z59.8 Other problems related to housing and economic circumstances; Z56.89 Other problems related to employment; G47.00 Insomnia, unspecified; F17.200 Nicotine dependence, unspecified, uncomplicated